=== PATIENT | female | born 1960 | race Caucasian/White ===

== ENCOUNTER 2018-06-08 11:46 | Outpatient (CLI) | payer BC | END 2018-06-08 11:47 | disposition home or self-care (01) | LOC: BICMAMMO 11:46 | PROVIDERS: ATTEND Internal Medicine | DX: Z12.31 Encounter for screening mammogram for malignant neoplasm of breast (principal); Z80.3 Family history of malignant neoplasm of breast | CPT/HCPCS: 77063; 77067 ==

== ENCOUNTER 2022-12-01 14:07 | Outpatient (CLI) | payer BC | END 2022-12-01 14:08 | disposition home or self-care (01) | LOC: BICMAMMO 14:07 | PROVIDERS: ATTEND Internal Medicine | DX: Z12.31 Encounter for screening mammogram for malignant neoplasm of breast (principal) | CPT/HCPCS: 77063; 77067 ==

== ENCOUNTER 2024-01-11 11:48 | Outpatient (CLI) | payer BC | END 2024-01-11 11:49 | disposition home or self-care (01) | LOC: BICMAMMO 11:48 | PROVIDERS: ATTEND Internal Medicine | DX: Z12.31 Encounter for screening mammogram for malignant neoplasm of breast (principal); Z80.3 Family history of malignant neoplasm of breast | CPT/HCPCS: 77063; 77067 ==